=== PATIENT | male | born 1950 | race Caucasian/White ===

== ENCOUNTER → 2017-01-15 | Outpatient (CLI) | payer OTHER, BC ==
[~2017-01-15] VITALS: Ht 182.9 cm; Wt 117.9 kg
[~2017-01-15] MED LIST: ALLOPURINOL 30300 M2 PO; ATORVASTATIN CA40 MG PO; BENICAR40 MG PO; CELEBREX 200 M200 M1 PO; CETIRIZINE HCL5 MG PO; FLOMAX0.4 MG PO; KETOCONAZOLE60 GM TP; LOTRIMIN AF10 ML TP; MELATONIN5 M1 PO; MUCINEX600 MG PO; NEURONTIN 300300 M1 PO; NEXIUM20 MG PO; NIZORAL120 ML TP; NORVASC2.5 MG PO; PAXIL 20 MG TAB20 MG PO; TURMERIC500 M1 PO; VITAMIN D3400 UNI2 PO; VYTORIN 10-401 EACH PO
--- NOTE | ~2017-01-15 | HPC ---
[facility] [address] [place] [address] PAIN MANAGEMENT CONSULTATION Name: VICTOR MANUEL CLARK Room #: REG SONNY MMatt.#: [id number] Admission: 01/15/17 Attend Phys: Cameron Mendiola DO Discharge: Date of : 48 Report #: [id number] THIS REPORT FOR: //name// CC: Cecelia Mendiola The patient is a very pleasant 66-year-old gentleman seen in consultation at the request of Dr. Chicas for evaluation of right lumbar radicular pain. The patient notes symptoms have been present for 5-7 years. Denies specific antecedent trauma and overuse. Notes occasionally with standing and walking, he will have paresthesia down to the right foot. He started Celebrex. He had a single epidural injection about a year and a half ago. It sounds like he may have also had a synovial cyst disruption. Somewhat lost to follow up. He notes pain is exacerbated again with walking or sitting in a bed chair, gets some relief if he simply decrease his activity. He describes steady, constant, cramping, aching, gnawing pain. He rates it anywhere from 2-8 on a VAS. REVIEW OF SYSTEMS: Complete review of systems attached to chart and gone over with the patient. He is , seen in the company of his who is supportive. He continues to smoke down half pack a year, but he smoked for 45 years. Drinks alcohol socially. History of hypertension, treated with Norvasc; benign prostatic hypertrophy, treated with tamsulosin. Dyslipidemia for which he takes atorvastatin, Benicar and Vytorin though his thinks that he may have discontinued one of those agents. Has esomeprazole for gastroesophageal reflux, Celebrex longstanding for "aches and pains." He has been on gabapentin 300 mg b.i.d. for about 6 months. This has helped some of his radicular pain. He takes paroxetine for some chronic anxiety and allopurinol for gout. Had surgery on his hands 8-10 years ago. He has been retired for 7 years. Pain impact score averages about 29 out of 70. Physical exam reveals a 6 feet tall, 260 pound gentleman, BMI is modestly elevated at 35.3 kilograms per meter squared. Blood pressure 108/81, pulse 104, respirations 18. Cranial nerves 2-12 are grossly intact. Pupils equal and reactive to light and accommodation. Extraocular muscles are intact. Cervical range of motion is full. Thyroid is modestly enlarged. Upper extremity strength is preserved. Heart is regular and rhythmical without murmur. Lungs are clear to auscultation. Abdomen shows a modestly endomorphic build. Rises from chair using armrest. Upon rising, he has little exacerbation of pain. Gait is generally tandem, but he does have decreased strength, right plantar flexion and right lower extremity extension and flexion. Modestly positive straight leg raise on the right. Patellar reflexes are generally symmetric. Achilles reflex is diminished on that right side. Skin integument is intact. [facility] [address] [place] [address] PAIN MANAGEMENT CONSULTATION Name: VICTOR MANUEL CLARK Room #: REG SONNY Broderick#: [id number] Admission: 01/15/17 Attend Phys: Cameron Mendiola DO Discharge: Date of : 48 Report #: [id number] Reviewed diagnostic findings from 09/13/2015, MRI notes multilevel lumbar spondylosis, L4-L5 had severe bilateral arthrosis with ligamentum flavum thickening of 8-9 mm. There is some moderate central stenosis here. Perhaps more concerning L5-S1. Notes moderate narrowing of the thecal sac to 8 mm with severe right and moderate left facet arthrosis resulting in severe right neural foraminal stenosis and effacement of the right L5 nerve root. Does have moderate to severe left neural foraminal stenosis as well, though symptoms appear to be primarily right L5 mediated. There is a synovial cyst noted at this right L5-S1 facet joint, I suspect this was the one that had been prior "ruptured" with percutaneous procedure. Unknown if this has recurred. He certainly does have symptoms compatible with right L5-S1 stenosis and right L5 radicular symptoms. RECOMMENDATION: Epidural injection under fluoroscopy today, right of midline at L4-5. Consider repeat injection L5-S1 if indicated. If, however, the patient does not get adequate relief, it may benefit from surgical decompression. Thanks for allowing me to participate in the patient's care. I will keep you abreast of his progress. PROCEDURE NOTE: Lumbar epidural injection under fluoroscopy. ASSESSMENT: Symptomatic lumbar radiculopathy. PROCEDURE: Lumbar epidural injection under fluoroscopy. PROCEDURE: Lumbar epidural steroid injection. PROCEDURE NOTE: After both written and informed consent to include risk of spinal cord damage, increased pain, weakness and dural puncture, the patient was taken to the fluoroscopy suite, placed in the prone position. After sterile prep and drape, a skin wheal with lidocaine was raised. A 22-gauge epidural Tuohy needle was inserted in the midline at L4-L5 with good loss to resistance. Negative aspiration for cerebrospinal fluid or blood was noted. Then 1 mL of Omnipaque under biplanar fluoroscopy showed good spread within the epidural space. This was followed with 80 mg of triamcinolone plus 1 mL of 1.5% preservative-free Xylocaine, 0.5 mL Xylocaine was then injected to flush the needle; it was removed. The patient was monitored for an appropriate period of time and discharged in good and stable condition. <ELECTRONICALLY SIGNED> By: Cameron Mendiola DO 01/19/1708 [id number] Cameron Medniola DO /nt
[2017-01-15 12:46] VITALS: BP 108/81
== END | disposition home or self-care (01) ==
LOC: PAIN 07:07
DX: M54.16 Radiculopathy, lumbar region (principal); I10 Essential (primary) hypertension; N40.0 Benign prostatic hyperplasia without lower urinary tract symptoms; E78.5 Hyperlipidemia, unspecified; K21.9 Gastro-esophageal reflux disease without esophagitis; M10.9 Gout, unspecified; F17.210 Nicotine dependence, cigarettes, uncomplicated; F41.8 Other specified anxiety disorders; Z98.890 Other specified postprocedural states; Z79.899 Other long term (current) drug therapy

== ENCOUNTER → 2017-02-05 | Outpatient (CLI) | payer OTHER, BC ==
[~2017-02-05] VITALS: Ht 182.9 cm; Wt 114.3 kg
--- NOTE | ~2017-02-05 | HPC ---
[facility] [address] [address] PAIN MANAGEMENT CONSULTATION Name: VICTOR MANUEL CLARK Room #: REG SONNY Broderick#: [id number] Admission: 02/05/17 Attend Phys: Cameron Mendiola DO Discharge: Date of : 48 Report #: [id number] THIS REPORT FOR: //name// CC: Cecelia Mendiola The patient is a very pleasant 67-year-old gentleman, initially seen in consultation on 01/15/2017, diagnosed with symptomatic lumbar radiculopathy. The patient was given a single epidural injection at that time, right of midline L4-L5. Returns to pain clinic today noting that that injection afforded good yet transient relief, notes he had had 75% relief for 2 weeks. The pain has gradually begun to recur. He still has less pain with activities of daily living, rates his pain today 1-2 on a VAS, but still has some paresthesias in the right low back, buttock, back of the leg to the bottom of the foot. Notes these symptoms have been going on from 5 to 6 years. Most concerningly, he has a little bit of weakness with dorsiflexion and plantar flexion on that side. I did review his diagnostic findings including MRI from 09/13/2015, L5-S1 notes, severe right neural foraminal stenosis effacing the exiting right L5 nerve root. ASSESSMENT: Symptomatic lumbar radiculopathy. RECOMMENDATIONS: Discussion with the patient today about therapeutic option. We would like to repeat epidural injection today, we will use a right L5-S1 transforaminal epidural approach. If this affords incremental long-term relief, I will see him back in 4 weeks and may consider repeating the injection (he and his were going on a cruise in about 4 weeks). If, however, symptoms come back and remain problematic, I will have the patient follow up with ____ for consideration for right L5-S1 foraminotomy or indicated surgical procedure. PROCEDURE: Transforaminal epidural injection under fluoroscopy. PROCEDURE NOTE: After both written and informed consent was obtained including risk of spinal cord damage, infection, increased pain and paralysis, the patient agreed to proceed. The patient was taken to the fluoroscopy suite, placed in a prone position with appropriate abdominal bolstering. After sterile prep with ChloraPrep and sterile drape, a skin wheal with 1% Xylocaine was raised. A 22 gauge 4-1/2 inch epidural Tuohy needle was inserted. From an oblique approach into the posterior-superior aspect of the right L5-S1 neural foramen with continuous pressure on the glass syringe plunger for loss of resistance. Glass syringe was filled with 2 cc of 0.1 Xylocaine. The glass loss of resistance syringe was removed. A low volume extension tubing was connected, negative aspiration was accomplished for cerebrospinal fluid or blood. 1 mL of Omnipaque was injected which showed spread both within the epidural space and laterally along the nerve root. This was followed with 80 mg of triamcinolone plus [address] [address] PAIN MANAGEMENT CONSULTATION Name: VICTOR MANUEL CLARK Room #: PRINCE Broderick#: [id number] Admission: 02/05/17 Attend Phys: Cameron Mendiola DO Discharge: Date of : 48 Report #: [id number] of 1.5% preservative-free Xylocaine. Needle was partially withdrawn, 0.5 mL of Xylocaine was injected to clear the needle and the needle was removed. The area was cleansed, band-aid was applied. The patient was allowed to ambulate to the recovery room, discharged in good and stable condition. By: [id number] Cameron Mendiola DO /nt
[2017-02-05 10:13] VITALS: BP 118/71
== END | disposition home or self-care (01) ==
LOC: PAIN 07:02
DX: M54.16 Radiculopathy, lumbar region (principal); F17.200 Nicotine dependence, unspecified, uncomplicated

== ENCOUNTER → 2017-02-26 | Outpatient (CLI) | payer OTHER, BC ==
[~2017-02-26] VITALS: Ht 182.9 cm; Wt 111.8 kg
--- NOTE | ~2017-02-26 | HPC ---
[facility] [address] [place] [address] PAIN MANAGEMENT CONSULTATION Name: VICTOR MANUEL CLARK Room #: REG SONNY Broderick#: [id number] Admission: 02/26/17 Attend Phys: Cameron Mendiola DO Discharge: Date of : 48 Report #: [id number] THIS REPORT FOR: //name// CC: Cecelia Mendiola The patient is a very pleasant 67-year-old gentleman. He has been treated for symptomatic lumbar radiculopathy with 2 lumbar epidural injections with good incremental improvement. Initial injection on 01/15/2017 afforded 75% relief. Right L4-L5 transforaminal epidural injection on ____ also afforded incremental relief; however, the patient and his moved about 2 weeks after this involving a lot of packing, bending and lifting. Pain has recurred. Review of the MRI from 09/13/2015 notes L5-S1 to have moderate narrowing of the thecal sac down to about 8 mm, severe right and moderate left facet arthrosis resulting in severe right neural foraminal stenosis compromising the right L5 nerve root. There is also severe left neural foraminal stenosis with a 4.5 x 4 cm rounded T2 hyperintense focus within the right paracentral region likely a synovial cyst from that facet joint. ASSESSMENT: Symptomatic lumbar radiculopathy, ongoing lumbar radicular symptoms in a gentleman who rates his pain a 2 on a VAS, which exacerbates with activity. He is planning on taking a cruise next week. We would like to repeat epidural injection today. Physical exam does show a 67-year-old gentleman, BMI is 33.4 kg/m2. Vital signs show modest hypertension. Blood pressure 148/94. Rises from chair using armrest, modestly antalgic gait. Lumbar flexion is limited, paresthesia in both feet, pain is primarily right lumbar L5 pattern. RECOMMENDATION: Epidural injection under fluoroscopy today. Follow up simply as needed. He does have a followup appointment with ____ for evaluation for surgical intervention. Given that his MRI is somewhat dated from 09/2015, his office requested a new MRI, I did generate a request for new MRI today. PROCEDURE: Lumbar epidural injection under fluoroscopy. PROCEDURE NOTE: After both written and informed consent to include risk of spinal cord damage, increased pain, weakness and dural puncture, the patient was taken to the fluoroscopy suite, placed in the prone position. After sterile prep and drape, a skin wheal with lidocaine was raised. A 22-gauge epidural Tuohy needle was inserted in the midline at levels of L4-L5 with good loss to resistance. Negative aspiration for cerebrospinal fluid or blood was noted. Then 1 mL of Omnipaque under biplanar fluoroscopy showed good spread within the epidural space. This was followed with 80 mg of triamcinolone plus 1 mL of 1.5% preservative-free Xylocaine, 0.5 mL Xylocaine was then injected to flush the [address] [address] PAIN MANAGEMENT CONSULTATION Name: VICTOR MANUEL CLARK Room #: PRINCE Broderick#: [id number] Admission: 02/26/17 Attend Phys: Cameron Mendiola DO Discharge: Date of : 48 Report #: [id number] needle; it was removed. The patient was monitored for an appropriate period of time and discharged in good and stable condition. By: [id number] Cameron Mendiola DO /nt
[2017-02-26 12:56] VITALS: BP 148/94
== END | disposition home or self-care (01) ==
LOC: PAIN 07:07
DX: M54.16 Radiculopathy, lumbar region (principal); G89.29 Other chronic pain; F17.200 Nicotine dependence, unspecified, uncomplicated; Z98.890 Other specified postprocedural states; Z79.899 Other long term (current) drug therapy

== ENCOUNTER → 2017-03-05 | Outpatient (CLI) | payer OTHER, BC | LOC: MRI 08:49 | DX: M47.896 Other spondylosis, lumbar region (principal); M54.16 Radiculopathy, lumbar region ==

== ENCOUNTER → 2020-01-10 | Outpatient (CLI) | payer OTHER, BC | LOC: SJCVCIMAG 07:33 | PROVIDERS: ATTEND Nuclear Medicine Nuclear Cardiology | DX: I70.201 Unspecified atherosclerosis of native arteries of extremities, right leg (principal); I10 Essential (primary) hypertension; E78.00 Pure hypercholesterolemia, unspecified; Z79.899 Other long term (current) drug therapy; Z87.891 Personal history of nicotine dependence ==

== ENCOUNTER → 2020-01-20 | Outpatient (CLI) | payer OTHER, BC ==
[~2020-01-20] VITALS: Ht 182.9 cm; Wt 122.5 kg
[~2020-01-20] MED LIST changes: +PLAVIX 75 MG TA75 MG PO
[2020-01-20 07:10] VITALS: BP 102/80
[2020-01-20 07:32] LABS: HEMATOCRIT 45.5 % (42.0-52.0); HEMOGLOBIN 15.8 gm/dL (14.0-18.0); MCH 32.2 pg (26.0-34.0); MCHC 34.7 g/dL (28.0-37.0); MCV 92.9 fL (80.0-100.0); RBC 4.89 mil/uL (4.50-6.00); RDW 14.5 % (10.5-14.5); WBC 10.6 thou/uL (4.0-11.0)
[2020-01-20 07:38] LABS: CALCIUM 9.1 mg/dL (8.5-10.1); CREATININE 1.3 mg/dL (0.7-1.3); POTASSIUM 4.2 mmol/L (3.5-5.1)
== END | disposition home or self-care (01) ==
LOC: CATH 06:38
PROVIDERS: ATTEND Nuclear Medicine Nuclear Cardiology
DX: I70.213 Atherosclerosis of native arteries of extremities with intermittent claudication, bilateral legs (principal); T82.856A Stenosis of peripheral vascular stent, initial encounter; I70.1 Atherosclerosis of renal artery; I10 Essential (primary) hypertension; I25.10 Atherosclerotic heart disease of native coronary artery without angina pectoris; E78.5 Hyperlipidemia, unspecified; J44.9 Chronic obstructive pulmonary disease, unspecified; K21.9 Gastro-esophageal reflux disease without esophagitis; E66.09 Other obesity due to excess calories; Z98.890 Other specified postprocedural states; Z79.899 Other long term (current) drug therapy; Z87.891 Personal history of nicotine dependence; Y83.8 Other surgical procedures as the cause of abnormal reaction of the patient, or of later complication, without mention of misadventure at the time of the procedure

== ENCOUNTER → 2020-01-31 | Outpatient (CLI) | payer OTHER | LOC: CAT 09:49 | PROVIDERS: ATTEND Orthopaedic Surgery | DX: Z13.6 Encounter for screening for cardiovascular disorders (principal); I25.10 Atherosclerotic heart disease of native coronary artery without angina pectoris; E78.00 Pure hypercholesterolemia, unspecified ==

== ENCOUNTER → 2020-02-29 | Outpatient (CLI) | payer OTHER, BC | LOC: SJCVC 13:01 | PROVIDERS: ATTEND Internal Medicine | DX: R94.31 Abnormal electrocardiogram [ECG] [EKG] (principal); R93.1 Abnormal findings on diagnostic imaging of heart and coronary circulation; I73.9 Peripheral vascular disease, unspecified; I10 Essential (primary) hypertension; E78.5 Hyperlipidemia, unspecified; I65.23 Occlusion and stenosis of bilateral carotid arteries; I45.10 Unspecified right bundle-branch block; G47.33 Obstructive sleep apnea (adult) (pediatric); I44.0 Atrioventricular block, first degree; Z79.899 Other long term (current) drug therapy ==

== ENCOUNTER → 2020-03-26 | Outpatient (CLI) | payer OTHER, BC | LOC: SJCVCIMAG 08:14 | PROVIDERS: ATTEND Internal Medicine | DX: I08.8 Other rheumatic multiple valve diseases (principal); I45.10 Unspecified right bundle-branch block; I44.0 Atrioventricular block, first degree; I11.9 Hypertensive heart disease without heart failure; R55 Syncope and collapse; R93.1 Abnormal findings on diagnostic imaging of heart and coronary circulation; Z87.891 Personal history of nicotine dependence; Z79.82 Long term (current) use of aspirin; Z79.899 Other long term (current) drug therapy ==

== ENCOUNTER → 2020-04-20 | Outpatient (CLI) | payer OTHER, BC | LOC: SJCVCIMAG 08:06 | PROVIDERS: ATTEND Nuclear Medicine Nuclear Cardiology | DX: I65.23 Occlusion and stenosis of bilateral carotid arteries (principal); I70.203 Unspecified atherosclerosis of native arteries of extremities, bilateral legs; I77.9 Disorder of arteries and arterioles, unspecified; I77.811 Abdominal aortic ectasia; Z95.828 Presence of other vascular implants and grafts; Z79.899 Other long term (current) drug therapy; Z87.891 Personal history of nicotine dependence ==

== ENCOUNTER → 2020-08-30 | Outpatient (CLI) | payer OTHER, BC | LOC: SJCVC 10:30 | PROVIDERS: ATTEND Internal Medicine | DX: I44.0 Atrioventricular block, first degree (principal); I45.10 Unspecified right bundle-branch block; R93.1 Abnormal findings on diagnostic imaging of heart and coronary circulation; I73.9 Peripheral vascular disease, unspecified; I10 Essential (primary) hypertension; E78.5 Hyperlipidemia, unspecified; I65.23 Occlusion and stenosis of bilateral carotid arteries; G47.33 Obstructive sleep apnea (adult) (pediatric); F41.9 Anxiety disorder, unspecified; M10.9 Gout, unspecified; Z79.899 Other long term (current) drug therapy; Z87.891 Personal history of nicotine dependence ==

== ENCOUNTER → 2020-12-20 | Outpatient (CLI) | payer OTHER, BC | LOC: SJCVCIMAG 08:54 | PROVIDERS: ATTEND Nuclear Medicine Nuclear Cardiology | DX: I65.23 Occlusion and stenosis of bilateral carotid arteries (principal); I70.203 Unspecified atherosclerosis of native arteries of extremities, bilateral legs; I77.9 Disorder of arteries and arterioles, unspecified; I25.10 Atherosclerotic heart disease of native coronary artery without angina pectoris; I71.4 Abdominal aortic aneurysm, without rupture; E78.00 Pure hypercholesterolemia, unspecified; E78.5 Hyperlipidemia, unspecified; M10.9 Gout, unspecified; G47.33 Obstructive sleep apnea (adult) (pediatric); Z95.820 Peripheral vascular angioplasty status with implants and grafts; Z79.82 Long term (current) use of aspirin; Z79.899 Other long term (current) drug therapy; Z87.891 Personal history of nicotine dependence; Z82.49 Family history of ischemic heart disease and other diseases of the circulatory system ==

== ENCOUNTER → 2021-03-04 | Outpatient (CLI) | payer OTHER, BC | LOC: SJCVC 11:13 | PROVIDERS: ATTEND Internal Medicine | DX: R94.31 Abnormal electrocardiogram [ECG] [EKG] (principal); I44.0 Atrioventricular block, first degree; R93.1 Abnormal findings on diagnostic imaging of heart and coronary circulation; I73.9 Peripheral vascular disease, unspecified; I10 Essential (primary) hypertension; E78.5 Hyperlipidemia, unspecified; I65.23 Occlusion and stenosis of bilateral carotid arteries; I45.10 Unspecified right bundle-branch block; G47.33 Obstructive sleep apnea (adult) (pediatric); R10.9 Unspecified abdominal pain; F41.9 Anxiety disorder, unspecified; Z79.899 Other long term (current) drug therapy; Z79.82 Long term (current) use of aspirin; Z87.891 Personal history of nicotine dependence ==